=== PATIENT | male | born 1960 | race Caucasian/White ===

== ENCOUNTER 2022-06-06 18:00 | Emergency (ER) | payer BC, SELFPAY ==
[2022-06-06 18:00] VITALS: BP 182/108; PULSE 75; RESP 20; TEMP 35.6; O2SAT 100; BMI 31.1
[2022-06-06 18:30] VITALS: RESP 18
[2022-06-06 18:32] LABS: Absolute Lymphocyte Count 2.88 X10^3/uL (0.83-4.51); Absolute Neutrophil Count 8.3 X10^3/uL (2.0-7.7); Basophil# 0.06 X10^3/uL; Basophil% 0.5 % (0-1); Eosinophil# 0.23 X10^3/uL; Eosinophils% 1.9 % (0-5); Hematocrit 43.4 % (40-54); Lymphocyte # 2.88 X10^3/ul (0.83-4.51); Lymphocyte % 23.3 % (19-41); Mean Corp Hgb Conc 36.9 g/dL (32-36); Mean Corpuscular Hgb 32.3 pg (27.0-32.0); Mean Corpuscular Volume 87.7 fL (80-94); Mean Platelet Vol. 9.6 fl (6.2-12.0); Monocyte# 0.87 X10^3/uL; NRBC Flagged by Analyzer 0 % (0-5); Neutrophil # 8.27 X10^3/uL (2.7-7.7); Neutrophil % 66.9 % (47-70); Platelet Count 237 K/mm3 (150-450); RBC Distribution Width CV 12.7 % (11.6-14.6); RBC Distribution Width SD 40.6 fl (35.1-43.9); Red Blood Count 4.95 M/mm3 (4.6-6.2); White Blood Count 12.4 K/mm3 (4.4-11.0)
--- NOTE | 2022-06-06 18:37 | CT_ITS ---
STUDY: CT ABDOMEN AND PELVIS WITHOUT CONTRAST REASON FOR EXAM: Male, 62 years old. Left flank pain radiating to left groin. History of diverticulitis. Elevated WBC. RADIATION DOSAGE (If Supplied By Facility): CTDIvol = ( 17.55 ) mGy, DLP = ( 951.23 ) mGycm TECHNIQUE: Transaxial images were obtained from the dome of the diaphragm to the symphysis pubis without oral contrast, and without intravenous contrast. Sagittal and coronal images were reconstructed. Individualized dose optimization techniques were used for this CT. COMPARISON: None. FINDINGS: The visualized lung bases are unremarkable. The visualized portions of the heart are within normal limits. There is a cyst in segment otherwise normal liver. Normal gallbladder and extrahepatic biliary system. Normal spleen. Normal pancreas. Normal bilateral adrenal glands. There are small cysts in the lower pole. Otherwise normal right kidney. No renal calculi. Normal right ureter. Mild enlargement of the left kidney when compared to the right with stranding of the perinephric fat. There is a 2.8 cm cyst lower pole cortex. There is mild hydronephrosis and ureterectasis to the UVJ where there is an obstructing 3 mm calculus (image 163, series 2). Normal visualized stomach. Normal small intestine. Scattered descending and sigmoid diverticulosis without acute inflammatory change. The appendix is visualized and appears normal. Normal abdominal aorta. Normal inferior vena cava. Normal retroperitoneum. Normal urinary bladder. Prostate. No pelvic lymphadenopathy. No free air or free fluid is seen within the peritoneal cavity. Normal abdominal wall. There are mild degenerative changes of the visualized lumbar spine. CT/Abdomen/Pelvis without Cont IMPRESSION: 1. Left UVJ calculus with mild obstructive uropathy. 2. Bilateral renal cysts. 3. Diverticulosis without acute inflammatory change. 4. Small hepatic cyst. Electronically Signed: Johny Pardo DO at 19:40 EDT Reading Location ID and State: [facility] / [place] Tel [phone], Service support ,
--- NOTE | 2022-06-06 18:38 | ED.VIS.GI ---
HPI HPI - GI History of Present Illness Chief Complaint: Abd Pain Narrative Narrative: Patient denies significant past medical history presents with left flank pain radiating towards the front since 5 PM, almost an hour and a half ago. He states he came home from work, ate dinner, and had pain in his left back and flank. He felt it was up higher, but then it moved down to his left flank, radiating towards the front. He denies any fevers or chills. Perhaps slight nausea but no vomiting. He denies any dysuria or hematuria. No problems with bowel movements. Last bowel movement was this morning and normal without any blood. No diarrhea. Daughter relates history that he had colonoscopy and was found to have diverticulosis but has never had any battles with diverticulitis. He denies any exacerbating or alleviating factors but is describing a somewhat stabbing pain in his left flank. PFSH PFSH Home Medications ketorolac 10 mg tablet 10 mg PO TID PRN pain 5 days #15 tabs 06/06/22 [Rx Last Taken Unknown] levothyroxine 137 mcg tablet 137 mcg PO DAILY 06/06/22 [History Last Taken Unknown] oxycodone-acetaminophen 5 mg-325 mg tablet (Percocet) 1 tab PO Q6H PRN pain 3 days #12 tabs 06/06/22 [Rx Last Taken Unknown] rosuvastatin 5 mg tablet 5 mg PO QODAY 06/06/22 [History Last Taken Unknown] tamsulosin 0.4 mg capsule (Flomax) 0.4 mg PO QHS #10 caps 06/06/22 [Rx Last Taken Unknown] Allergy/AdvReac Type Severity Reaction Status Date / Time ezetimibe AdvReac Other Verified 06/06/22 18:02 Social History Smoking Status: Never smoker ROS ROS ED ROS Narrative Constitutional: No fever, no chills. HEENT: No sore throat. No neck pain. No loss of vision. No rhinorrhea. Cardiovascular: No chest pain. No palpitations. No pedal edema. Respiratory: No cough, no shortness of breath. Abdominal: No abdominal pain. No nausea. No vomiting. Genitourinary: No dysuria. No hematuria. Left flank pain. Musculoskeletal: No myalgias. No arthralgias. Neurologic: No headaches. No dizziness. No lightheadedness. Skin: No rash. No change in color. Psychiatric: No depression. No anxiety. EXAM Physical Exam Narrative Exam Narrative: Afebrile. Vital signs noted. HEENT: Normocephalic. Atraumatic. PERRL, EOMI. Neck soft and supple. No point tenderness or step off. Cardiovascular: Regular rate and rhythm. No murmurs, rubs, or gallops appreciated. Respiratory: No tachypnea. Lungs clear to auscultation bilaterally. Gastrointestinal: Abdomen soft, nontender, with normoactive bowel sounds. No rebound or guarding. Neurological: Awake. Alert. Nonfocal, nonlateralizing. Skin: No rash. Normal color. No pallor. Musculoskeletal: No pedal edema. Full range of motion extremities. Const Vital Signs: 06/06/22 18:00 06/06/22 18:30 06/06/22 19:30 Temperature 96.1 F L Temperature Source Temporal Pulse Rate 75 Respiratory Rate 20 H 18 18 Blood Pressure 182/108 H Blood Pressure Mean 132 Pulse Ox 100 Oxygen Delivery Method Room Air 06/06/22 20:30 Temperature Temperature Source Pulse Rate Respiratory Rate 18 Blood Pressure Blood Pressure Mean Pulse Ox Oxygen Delivery Method MDM MDM MDM Narrative Medical decision making narrative: Patient appears uncomfortable. Comprehensive work-up was pursued. CBC shows elevated white count of 12.4 with hemoglobin 16.0. I will obtain CT imaging without contrast. He was administered Toradol and ondansetron. CBC returns with a slightly elevated white count of 12.4, hemoglobin normal at 16.0, hematocrit 43.4. Normal platelet count of 237. Electrolyte panel is significant for potassium of 3.4 and a creatinine of 1.37 with a normal BUN of 15. Urinalysis shows occult blood 250 but negative nitrites. It is negative for infection. I do not feel antibiotics are indicated. I will send his urine for culture however. CT of the abdomen and pelvis shows a left UVJ calculus with mild obstructive uropathy that is approximately 3 mm in size. Patient was given a Flomax here in the emergency department and I ordered a dose of morphine for him. He will be discharged to follow-up with Dr. Ayala within the next week. He was given prescriptions for Percocet, Flomax, and Toradol. He was told of the risk of dizziness and lightheadedness/near syncope with the use of Flomax. I feel he be discharged safely home with follow-up. Return instructions were reviewed. Disposition is discharged home in stable condition. Lab Data Attestation: I reviewed the patient's lab results. Labs: Laboratory Results - last 24 hr 06/06/22 06/06/22 06/06/22 18:10 18:10 20:45 WBC 12.4 H RBC 4.95 Hgb 16.0 Hct 43.4 MCV 87.7 MCH 32.3 H MCHC 36.9 H RDW Std Deviation 40.6 RDW Coeff of Jeffy 12.7 Plt Count 237 MPV 9.6 Immature Gran % (Auto) 0.400 Neut % (Auto) 66.9 Lymph % (Auto) 23.3 [place] % (Auto) 7.0 Eos % (Auto) 1.9 Baso % (Auto) 0.5 Absolute Neuts (auto) 8.3 H Absolute Lymphs (auto) 2.88 Nucleated RBC % 0 Sodium 140 Potassium 3.4 L Chloride 103 Carbon Dioxide 27.0 Anion Gap 10 BUN 15 Creatinine 1.37 H Estim Creat Clear Calc 61.36 Est GFR (MDRD) Af Amer 68 Est GFR (MDRD) Non-Af 56 L BUN/Creatinine Ratio 10.9 Glucose 138 H Calcium 10.2 H Urine Color Yellow Urine Clarity Sl. Cloudy Urine pH 6.0 Ur Specific [place] 1.025 Urine Protein 30 H Urine Glucose (UA) Normal Urine Ketones 5 H Urine Occult Blood 250 H Urine Nitrite Negative Urine Bilirubin Negative Urine Urobilinogen Normal Ur Leukocyte Esterase 25 H Urine RBC 50-100 SEEN Urine WBC 0-5 SEEN Ur Squamous Epith Cells 0-5 SEEN Urine Bacteria 1+ Urine Mucus 1+ Radiography Diagnostic Testing: Clinical Impression(s) from Imaging Studies Abdomen/Pelvis CT 06/06/22 18:37 IMPRESSION: 1. Left UVJ calculus with mild obstructive uropathy. 2. Bilateral renal cysts. 3. Diverticulosis without acute inflammatory change. 4. Small hepatic cyst. Electronically Signed: Johny Pardo DO at 19:40 EDT Reading Location ID and State: [address] [place] [address] Tel [phone], Service support , Discharge Plan Triage Chief Complaint: Abd Pain ED Provider: Vladimir Chan Dx/Rx/DC Orders Clinical Impression: Ureteral stone with hydronephrosis, Left flank pain Instructions: ED Kidney Stone w/ Colic Prescriptions: New tamsulosin [Flomax] 0.4 mg capsule 0.4 mg PO QHS Qty: 10 0RF ketorolac 10 mg tablet 10 mg PO TID PRN (Reason: pain) 5 Days Qty: 15 0RF oxycodone-acetaminophen [Percocet] 5-325 mg tablet 1 tab PO Q6H PRN (Reason: pain) 3 Days Qty: 12 0RF No Action levothyroxine 137 mcg tablet 137 mcg PO DAILY Label Comments: TAKE 1 TABLET BY MOUTH ONCE DAILY rosuvastatin 5 mg tablet 5 mg PO QODAY Label Comments: TAKE 1 TABLET BY MOUTH EVERY OTHER DAY Primary Care Provider: Sabino Fabian Referrals: Alfredo Ayala MD [Med Staff - Active Staff] - 1 Week if not improving Sabino Fabian MD [Primary Care Provider] - Disposition Disposition: Home, Self Care
[2022-06-06] MEDS: Ondansetron 4 MG/2 ML Vial IV (18:49)
[2022-06-06] MEDS: Ketorolac 30 MG/ML Syringe IV (18:49)
[2022-06-06] MEDS: 0.9% Normal Saline 1,000 ML 1000 ML IV (18:49)
[2022-06-06 18:51] LABS: Anion Gap 10 (5-15); BUN 15 mg/dL (7-18); BUN/Creat Ratio 10.9 RATIO (10-20); Calcium,Total 10.2 mg/dL (8.5-10.1); Chloride 103 mmol/L (98-107); Creatinine, Serum 1.37 mg/dL (0.70-1.30); EST Glomerular Filtration Rate 56 mL/min (>60); Est Glom Filt Rate - Afr Amer 68 mL/min (>60); Estimated Creatinine Clearance 61.36 ml/min; Glucose 138 mg/dL (74-106); Potassium 3.4 mmol/L (3.5-5.1); Sodium Level 140 mmol/L (136-145)
[2022-06-06 19:30] VITALS: RESP 18
[2022-06-06] MEDS: Tamsulosin HCl 0.4 MG Capsule PO (20:13)
[2022-06-06] MEDS: Morphine 4 MG/ML Syringe IV (20:13)
[2022-06-06 20:30] VITALS: RESP 18
[2022-06-06 21:03] LABS: Color, Urine Yellow (Yellow); Glucose, Dipstick Normal (Normal); Ketone-Dipstick 5 mg/dl (Negative); Leukocyte Esterase-Dipstick 25 /ul (Negative); Nitrite-Dipstick Negative (Negative); Occult Blood-Urine 250 /ul (Negative); Protein-Dipstick 30 mg/dl (Negative); Specific Gravity, Urine 1.025 (1.002-1.030); Urine Bilirubin Dipstick Negative (Negative); Urine Clarity Sl. Cloudy (Clear); Urine Urobilinogen Normal (Normal)
[2022-06-06 21:39] LABS: Red Blood Cells-Urine 50-100 SEEN /hpf (0-5); White Blood Cells 0-5 SEEN /hpf (0-5)
[2022-06-06 21:40] LABS: Bacteria 1+ /hpf (None Seen); Mucous, Urine 1+ /hpf (<or=2+); Squamous Epithelial Cells - UA 0-5 SEEN /hpf (0-5)
== END 2022-06-06 21:58 | disposition home or self-care (01) ==
PROVIDERS: Emergency Provider Emergency Medicine; PCP Family Medicine; Visit Provider Emergency Medicine
DX: N13.2 Hydronephrosis with renal and ureteral calculous obstruction (principal); Z79.890 Hormone replacement therapy; Z79.899 Other long term (current) drug therapy
CPT/HCPCS: 74176; 80048; 81001; 85025; 87086; 87088; 96361; 96374; 96375; 99283; J7030; A4216; J2405

== ENCOUNTER → 2023-06-05 | Outpatient (CLI) | payer BC, SELFPAY ==
--- NOTE | 2023-06-05 07:52 | VDLE_ITS ---
Reason For Study: pain RIGHT LEFT CFV is compressible, spontaneous, phasic, CFV is compressible, spontaneous, phasic, competent and demonstrates normal competent, and demonstrates normal augmentation. augmentation. FV is compressible, spontaneous, phasic, competent and demonstrates normal augmentation. POP V is compressible, spontaneous, phasic, competent and demonstrates normal augmentation. T/P Trunk is compressible. PTV is compressible. RT PerV is compressible. SFJ is competent and measures .54 cm. GSV proximal thigh measures .15 x .18 cm. GSV at knee measures .24 x .25 cm. GSV above knee is competent. GSV below knee is INCOMPETENT for greater than 0.5 seconds. SSV proximal calf is INCOMPETENT for greater than 0.5 seconds and measures 1.0 x 1.05 cm. ASV mid calf is INCOMPETENT for greater than 0.5 seconds and measures .25 x .28 cm. Procedure This is a venous duplex using B-mode, color flow and spectral Doppler. Exam performed in department. The exam was diagnostic. A preliminary report was called and/or faxed to Heidy Ward. VL/Venous Duplex US, Unilateral Interpretation Summary Deep veins of the right lower extremity are patent and compressible segmentally . There is no evidence of right lower extremity deep vein thrombosis. The right great sapheno us vein appears patent and compressible segmentally. Positive for reflux in the right below knee great saphenous vein, small sapheno us vein, accessory saphenous vein Ordering Physician: Heidy Ward Performed By: Jerod Jorge RVT
== END | disposition home or self-care (01) ==
PROVIDERS: PCP Family Medicine; Referring Provider Physician Assistant; Visit Provider Physician Assistant
DX: M79.604 Pain in right leg (principal)
CPT/HCPCS: 93971